=== PATIENT | female | born 1980 | race American Indian/Alaskan Native ===

== ENCOUNTER 2018-10-18 20:55 | Emergency (ER) | payer MEDICAID ==
[2018-10-18] MEDS ORDERED: KETOROLAC 30 MG/ML VIAL IVP STA (21:39)
[2018-10-18] MEDS ORDERED: MORPHINE 2 MG/ML CARPUJECT IVP STA (21:39)
[2018-10-18] MEDS ORDERED: SODIUM CHLORIDE 0.9% 1,000 ML IV ONE (21:39)
[2018-10-18] MEDS ORDERED: ONDANSETRON 4 MG/2 ML VIAL IVP STA (21:39)
[2018-10-18 22:04] LABS: BASOPHILS # (AUTO) 0.1 10^3/uL (0.0-0.1); BASOPHILS % (AUTO) 0.8 %; EOSINOPHILS # (AUTO) 0.1 10^3/uL (0.0-0.7); EOSINOPHILS % (AUTO) 1.1 %; HGB - HEMOGLOBIN 14.3 g/dL (12.0-16.0); LYMPHOCYTES # (AUTO) 4.1 10^3/uL (1.5-3.5); LYMPHOCYTES % (AUTO) 35.8 %; MEAN CORPUSCULAR HEMOGLOBIN 30.7 pg (27.0-31.0); MEAN CORPUSCULAR HGB CONC 33.3 g/dL (32.0-36.0); MEAN CORPUSCULAR VOLUME 92.1 fL (81.0-99.0); MEAN PLATELET VOLUME 7.5 fL (7.9-10.8); MONOCYTES # (AUTO) 0.9 10^3/uL (0.0-1.0); MONOCYTES % (AUTO) 7.9 %; NEUTROPHILS # (AUTO) 6.2 10^3/uL (1.5-6.6); NEUTROPHILS % (AUTO) 54.4 %; PLT - PLATELET COUNT 301 10^3/uL (130-450); RED BLOOD COUNT 4.66 10^6/uL (4.20-5.40); RED CELL DISTRIBUTION WIDTH 13.8 % (12.0-15.0); WHITE BLOOD COUNT 11.4 x10^3/uL (4.8-10.8)
[2018-10-18 22:07] LABS: BILIRUBIN,URINE NEGATIVE (NEGATIVE); GLUCOSE, URINE (UA) NEGATIVE (NEGATIVE); KETONES,URINE (UA) NEGATIVE (NEGATIVE); LEUKOCYTE ESTERASE, URINE NEGATIVE (NEGATIVE); NITRITE,URINE NEGATIVE (NEGATIVE); OCCULT BLOOD,URINE SMALL (NEGATIVE); PH,URINE 5.5 PH (5.0-7.5); PROTEIN,URINE NEGATIVE (NEGATIVE); UROBILINOGEN,URINE 0.2 (NORMAL) E.U./dL (NORMAL)
[2018-10-18 22:10] LABS: CLARITY,URINE HAZY (CLEAR)
[2018-10-18 22:11] LABS: HCG UR QUAL NEGATIVE
[2018-10-18 22:13] LABS: ALBUMIN 4.1 g/dL (3.2-5.5); ALBUMIN/GLOBULIN RATIO 1.1 (1.0-2.2); BILIRUBIN,TOTAL 0.3 mg/dL (0.2-1.0); CALCIUM 9.2 mg/dL (8.5-10.3); TOTAL PROTEIN 7.7 g/dL (6.7-8.2)
[2018-10-18 22:26] LABS: SQUAMOUS EPITHELIAL CELL,UR MANY Squamous (<= Few)
[2018-10-18 22:27] LABS: BACTERIA,URINE Rare /HPF (None Seen); CRYSTALS,URINE 6-10 Calcium Oxalate /LPF
--- NOTE | 2018-10-18 22:43 | Ultrasound Report ---
Reason: RUQ abd pain Procedure Date: 10/18/2018 Accession Number: [id number] / [id number] Procedure: US - Abdomen Limited CPT Code: FULL RESULT: EXAM: ABDOMEN ULTRASOUND LIMITED, RUQ EXAM DATE: 10/18/2018 10:15 PM. CLINICAL HISTORY: Right upper quadrant abdominal pain. COMPARISON: None. TECHNIQUE: Real-time scanning was performed with static images obtained. FINDINGS: Liver: Echogenic. 19.0 cm. Main portal vein flow: Hepatopetal. Gallbladder: Stones in the gallbladder with wall thickening at 6 mm. Focal tenderness over the gallbladder. Biliary System: CBD measures 4 mm. No intrahepatic or extrahepatic ductal dilatation. Other: Right kidney measures 9.7 cm and appears normal. Visualized portions of the pancreas are unremarkable. Inferior vena cava is patent where seen. IMPRESSION: 1. Stones in the gallbladder with wall thickening at 6 mm, and focal gallbladder tenderness. Findings are consistent with cholecystitis. 2. No biliary dilatation seen. 3. Fatty liver. RADIA
--- NOTE | 2018-10-18 23:42 | CT Report ---
Reason: right flank pain and hematuria Procedure Date: 10/18/2018 Accession Number: [id number] / [id number] Procedure: CT - Abdomen/Pelvis WO CPT Code: FULL RESULT: EXAM: CT ABDOMEN AND PELVIS (CT KUB) EXAM DATE: 10/18/2018 11:23 PM. CLINICAL HISTORY: Right flank pain and hematuria. COMPARISONS: Ultrasound, 10/18/2018. TECHNIQUE: Routine axial helical CT imaging was performed through the abdomen and pelvis without IV contrast. Reconstructions: Coronal and sagittal. In accordance with CT protocol optimization, one or more of the following dose reduction techniques were utilized for this exam: automated exposure control, adjustment of mA and/or KV based on patient size, or use of iterative reconstructive technique. FINDINGS: Lung Bases: Mild bibasilar atelectasis. Right Kidney/Ureter: Nonobstructing 3 mm stone in the kidney. No ureteral stone or obstructive uropathy identified. Left Kidney/Ureter: No stones, hydronephrosis, or hydroureter. No perinephric fat stranding. Other Solid Organs: Noncontrast images of the solid organs are grossly unremarkable. Gallbladder/Bile Ducts: Small stones in the gallbladder. Inflammatory changes suspicious for cholecystitis. Peritoneal Cavity: No bowel obstruction seen. No diverticulitis. Moderate stool in the right hemicolon. Small umbilical hernia containing fat. No free air or free fluid. No lymphadenopathy. Appendix is retrocecal and appears normal. Pelvic Organs: No bladder stones or wall thickening. Noncontrast images of the visualized pelvic organs are unremarkable. Vasculature: Unremarkable. Other: None. IMPRESSION: 1. Nonobstructing 3 mm stone in the right kidney. 2. No ureteral stone or obstructive uropathy seen bilaterally. 3. Small stones in the gallbladder with inflammatory changes suspicious for cholecystitis. RADIA
--- NOTE | 2018-10-18 23:50 | ED Physician Documentation ---
PD HPI ABD PAIN - Stated complaint Stated Complaint: ABD PX - Chief complaint Chief Complaint: Abd Pain - History obtained from History obtained from: Patient - History of Present Illness Timing - onset: Last night Timing - details: Abrupt onset Quality: Sharp Location: Other (right sided) Radiation: Right flank Associated symptoms: Nausea, Vomiting Similar symptoms before: Has not had sx before - Additional information Additional information: The patient is a 38-year-old female who presents with right-sided abdominal pain radiating to the right flank. Her pain started abruptly during the night last night, about one hour after eating corned beef and cabbage. She reports associated nausea and vomiting. She denies fever, diarrhea, or dysuria. She has a history of Crohn's disease, but states that this feels different from her Crohn's disease. She denies history of similar symptoms in the past. Review of Systems Constitutional: denies: Fever Ears: denies: Tinnitus/ringing Nose: denies: Congestion Throat: denies: Sore throat Cardiac: denies: Chest pain / pressure Respiratory: denies: Dyspnea, Cough GI: reports: Abdominal Pain, Nausea, Vomiting. denies: Diarrhea : reports: LMP (Mid-August. History of irregular menses.), Irregular menses. denies: Dysuria Skin: denies: Rash Musculoskeletal: reports: Back pain (Right flank.) Neurologic: denies: Headache PD PAST MEDICAL HISTORY - Past Medical History Past Medical History: No Cardiovascular: None Respiratory: None Endocrine/Autoimmune: None GI: Crohn's disease : Other (PCOS) - Past Surgical History Past Surgical History: No - Present Medications Home Medications: Ambulatory Orders Medication Instructions Recorded Confirmed Oxycodone HCl/Acetaminophen 1 - 2 each PO Q6H PRN #14 tablet 10/18/18 [Percocet 5-325 mg Tablet] Promethazine [Phenergan] 25 mg PO Q6H PRN #10 tab 10/18/18 - Allergies Allergies/Adverse Reactions: Allergies Allergy/AdvReac Type Severity Reaction Status Date / Time azithromycin Allergy Anaphylaxis Verified 10/18/18 21:07 cephalexin Allergy Anaphylaxis Verified 10/18/18 21:07 Penicillins Allergy Anaphylaxis Verified 10/18/18 21:07 Sulfa (Sulfonamide Allergy Anaphylaxis Verified 10/18/18 21:07 Antibiotics) - Social History Does the pt smoke?: No Smoking Status: Never smoker Does the pt drink ETOH?: No Does the pt have substance abuse?: No - Immunizations Immunizations are current?: Yes PD ED PE NORMAL - Vitals Vital signs reviewed: Yes (Initially hypertensive.) - General General: Alert and oriented X 3, Well developed/nourished - HEENT HEENT: Atraumatic, Moist mucous membranes, Pharynx benign - Neck Neck: No adenopathy, No JVD - Cardiac Cardiac: RRR, No murmur - Respiratory Respiratory: No respiratory distress, Clear bilaterally - Abdomen Abdomen: Normal bowel sounds, Soft, Other (Tenderness to palpation in the right upper quadrant, with a positive Nguyen sign.) - Back Back: No CVA TTP, No spinal TTP - Derm Derm: No rash - Extremities Extremities: No edema, No calf tenderness / cord - Neuro Neuro: Alert and oriented X 3, No motor deficit, Normal speech Results - Vitals Vitals: Oxygen O2 Source Room air - Labs Labs: Laboratory Tests 10/18/18 10/18/18 10/18/18 21:53 21:53 21:53 WBC 11.4 H RBC 4.66 Hgb 14.3 Hct 42.9 MCV 92.1 MCH 30.7 MCHC 33.3 RDW 13.8 Plt Count 301 MPV 7.5 L Neut # (Auto) 6.2 Lymph # (Auto) 4.1 H [place] # (Auto) 0.9 Eos # (Auto) 0.1 Baso # (Auto) 0.1 Absolute Nucleated RBC 0.01 Nucleated RBC % 0.1 Sodium 137 Potassium 3.7 Chloride 104 Carbon Dioxide 26 Anion Gap 7.0 BUN 10 Creatinine 1.0 Estimated GFR (MDRD) 63 L Glucose 114 H Calcium 9.2 Total Bilirubin 0.3 AST 16 ALT 14 Alkaline Phosphatase 58 Total Protein 7.7 Albumin 4.1 Globulin 3.6 Albumin/Globulin Ratio 1.1 Lipase 33 Urine Color YELLOW Urine Clarity HAZY Urine pH 5.5 Ur Specific Warden >=1.030 H Urine Protein NEGATIVE Urine Glucose (UA) NEGATIVE Urine Ketones NEGATIVE Urine Occult Blood SMALL H Urine Nitrite NEGATIVE Urine Bilirubin NEGATIVE Urine Urobilinogen 0.2 (NORMAL) Ur Leukocyte Esterase NEGATIVE Urine RBC 6-10 H Urine WBC 0-3 Ur Squamous Epith Cells MANY Squamous H Urine Crystals 6-10 Calcium Oxalate Urine Bacteria Rare Ur Microscopic Review INDICATED Urine Culture Comments NOT INDICATED Urine HCG, Qual NEGATIVE - Rads (name of study) CT abd/pelvis Radiology: Prelim report reviewed, EMP read contemporaneously, See rad report (1) Nonobstructing 3 mm stone in the right kidney. 2) No ureteral stone or ob structive uropathy seen bilaterally. 3) Small stones in the gallbladder with inflammatory changes suspicious for cholecystitis.) RUQ U/S Radiology: Prelim report reviewed, EMP read contemporaneously, See rad report (1) Stones in the gallbladder with wall thickening at 6 mm, and focal gallbladder tenderness. 2) Findings are consistent with cholecystitis. No biliary dilatation seen. 3) Fatty liver.) PD MEDICAL DECISION MAKING - ED course Complexity details: reviewed results, re-evaluated patient, considered differential, d/w patient, d/w family ED course: The patient's presentation is most consistent with cholelithiasis with biliary colic, which was confirmed by ultrasound of the right upper quadrant. Her liver enzymes are normal with a total bilirubin 0.3, AST 16, ALT 14, and alkaline phosphatase 58. Her lipase is normal at 33. Her initial description of the pain prompted suspicion for renal colic. Urinalysis came back with microscopic hematuria, with 6-10 red cells per high- powered field. A CT scan of the abdomen and pelvis reveals no evidence of ureteral stone or hydronephrosis. It did reveal a 3 mm nonobstructing stone within the right kidney. Treatment in the emergency department included administration of normal saline 1 L IV, ketorolac 30 mg IV, morphine 4 mg IV, and Zofran 4 mg IV. Her pain resolved with the above treatment, and on reexamination her abdomen is benign. She is being discharged with prescription for Phenergan and for Percocet, 12 t ablets. I discussed with her and her mother the diagnosis, the importance of outpatient surgical follow-up, as well as potentially worrisome signs or symptoms that should prompt reevaluation in the emergency department. Departure - Departure Disposition: 01 Home, Self Care Clinical Impression: Cholecystitis Condition: Stable Instructions: ED Gallstone W Biliary Colic Follow-Up: [facility] [Provider Group] Prescriptions: Oxycodone HCl/Acetaminophen [Percocet 5-325 mg Tablet] 1 - 2 each PO Q6H PRN #14 tablet PRN Reason: pain Promethazine [Phenergan] 25 mg PO Q6H PRN #10 tab PRN Reason: Nausea / Vomiting Comments: Try to avoid eating greasy or fatty foods. You can use Phenergan as prescribed if needed for nausea. You can use Percocet as prescribed if needed for pain. Follow-up with general surgery as soon as possible. Call to schedule appointment. Return to the emergency department if you develop increasing abdominal pain, fever, persistent vomiting, or otherwise worsening symptoms. Discharge Date/Time: 10/19/18 00:04
[2018-10-18 23:52] VITALS: BP 144/88
== END 2018-10-19 00:04 | disposition home or self-care (01) ==
LOC: ED 20:55
DX: K81.9 Cholecystitis, unspecified (principal); N20.0 Calculus of kidney
CPT/HCPCS: 36415; 74176; 76705; 80053; 81001; 81003; 81025; 83690; 85025; 87086; 96361; 96374; 96375; 99284

== ENCOUNTER 2019-03-06 11:48 | Emergency (ER) | payer MEDICAID ==
[2019-03-06 11:56] VITALS: BP 165/102
[2019-03-06] MEDS ORDERED: CYCLOBENZAPRINE 10 MG TABLET PO STA (12:34)
[2019-03-06] MEDS ORDERED: KETOROLAC 60 MG/2 ML VIAL IM STA (12:34)
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
== END 2019-03-06 13:21 | disposition home or self-care (01) ==
LOC: ED 11:48
DX: S46.911A Strain of unspecified muscle, fascia and tendon at shoulder and upper arm level, right arm, initial encounter (principal); M54.2 Cervicalgia; V43.52XA Car driver injured in collision with other type car in traffic accident, initial encounter; Y92.410 Unspecified street and highway as the place of occurrence of the external cause
CPT/HCPCS: 96372; 99283; 99284; A9270

== ENCOUNTER 2022-04-25 15:45 | Emergency (ER) | payer MEDICAID ==
[2022-04-25] MEDS ORDERED: METOPROLOL 5 MG/5 ML VIAL IVP STA (16:08)
--- NOTE | 2022-04-25 16:09 | ED Physician Documentation ---
PD HPI CHEST PAIN - Stated complaint Stated Complaint: CHEST PRESSURE/HIGH BP - Chief complaint Chief Complaint: Cardiac - History obtained from History obtained from: Patient - Additional information Additional information: 41-year-old woman with no history of heart problems, but she does have risk factors including untreated hypertension as her primary care physician retired, smoking, and potential family history, her dad developed some sort of heart problem but she does not know the details. She was in her usual state of health at 1:30 PM at rest today and developed uncomfortable chest pressure radiating to the neck with palpitations and skipped heartbeats. She also notes some deep left shoulder pain for the last few days with tingling in the left arm. Denies pedal edema or calf pain. Review of Systems Constitutional: denies: Fever, Chills Cardiac: reports: Chest pain / pressure, Palpitations Respiratory: reports: Dyspnea. denies: Cough PD PAST MEDICAL HISTORY - Past Medical History Cardiovascular: None Respiratory: None Endocrine/Autoimmune: None GI: Crohn's disease : Other - Past Surgical History Past Surgical History: No - Present Medications Home Medications: Ambulatory Orders Medication Instructions Recorded Confirmed Oxycodone HCl/Acetaminophen 1 - 2 each PO Q6H PRN #14 tablet 10/18/18 [Percocet 5-325 mg Tablet] Promethazine [Phenergan] 25 mg PO Q6H PRN #10 tab 10/18/18 Cyclobenzaprine [Flexeril] 10 mg PO TID PRN #20 tablet 03/06/19 Meloxicam [Mobic] 15 mg PO DAILY PRN #20 tablet 03/06/19 Metoprolol Succinate 100 mg PO DAILY #90 tab 04/25/22 - Allergies Allergies/Adverse Reactions: Allergies Allergy/AdvReac Type Severity Reaction Status Date / Time azithromycin Allergy Anaphylaxis Verified 04/25/22 15:50 cephalexin Allergy Anaphylaxis Verified 04/25/22 15:50 Penicillins Allergy Anaphylaxis Verified 04/25/22 15:50 Sulfa (Sulfonamide Allergy Anaphylaxis Verified 04/25/22 15:50 Antibiotics) - Social History Does the pt smoke?: No Smoking Status: Never smoker Does the pt drink ETOH?: No Does the pt have substance abuse?: No - Immunizations Immunizations are current?: Yes - POLST Patient has POLST: No PD ED PE NORMAL - Vitals Vital signs reviewed: Yes - General General: Alert and oriented X 3, Other (On the monitor she is having fairly frequent PVCs which do correspond with her symptoms and she notes them.) - Cardiac Cardiac: RRR (With frequent ectopy), No murmur - Respiratory Respiratory: No respiratory distress, Clear bilaterally - Abdomen Abdomen: Normal bowel sounds, Soft, Non tender - Back Back: No CVA TTP, No spinal TTP - Derm Derm: Normal color, Warm and dry - Extremities Extremities: No edema, No calf tenderness / cord - Neuro Neuro: Alert and oriented X 3, Normal speech Results - Vitals Vitals: Vital Signs - 24 hr 04/25/22 15:47 Temperature 36.9 C Heart Rate 115 H Respiratory 16 Rate Blood Pressure 151/115 H O2 Saturation 98 Oxygen O2 Source Room air - EKG (time done) 1551 Rate: Rate (enter#) (99) Rhythm: Sinus tachycardia (With frequent PVCs) [place]: Normal Intervals: Normal [place] QRS: Normal Ischemia: Normal ST segments - Labs Labs: Laboratory Tests 04/25/22 04/25/22 04/25/22 16:15 16:15 16:15 WBC 11.6 H RBC 4.68 Hgb 14.8 Hct 43.8 MCV 93.6 MCH 31.6 H MCHC 33.8 RDW 13.4 Plt Count 354 MPV 9.1 Neut # (Auto) 6.5 Lymph # (Auto) 4.1 H [place] # (Auto) 0.9 Eos # (Auto) 0.1 Baso # (Auto) 0.1 Absolute Nucleated RBC 0.00 Nucleated RBC % 0.0 D-Dimer < 200.0 L Sodium 137 Potassium 3.6 Chloride 101 Carbon Dioxide 26 Anion Gap 10.0 BUN 9 Creatinine 0.8 Estimated GFR (MDRD) 80 L Glucose 94 Calcium 9.4 Magnesium 2.0 Total Bilirubin 0.6 AST 17 ALT 16 Alkaline Phosphatase 59 Troponin I High Sens Total Protein 7.4 Albumin 4.3 Globulin 3.1 Albumin/Globulin Ratio 1.4 04/25/22 16:15 WBC RBC Hgb Hct MCV MCH MCHC RDW Plt Count MPV Neut # (Auto) Lymph # (Auto) [place] # (Auto) Eos # (Auto) Baso # (Auto) Absolute Nucleated RBC Nucleated RBC % D-Dimer Sodium Potassium Chloride Carbon Dioxide Anion Gap BUN Creatinine Estimated GFR (MDRD) Glucose Calcium Magnesium Total Bilirubin AST ALT Alkaline Phosphatase Troponin I High Sens 9.5 Total Protein Albumin Globulin Albumin/Globulin Ratio PD MEDICAL DECISION MAKING - ED course ED course: 41-year-old woman presents with elevated blood pressures in the setting of chest discomfort and frequent PVCs. She was administered metoprolol which did make her feel somewhat better and the PVCs resolved. The remainder of her work-up was negative with normal troponin and D-dimer. Also, single view chest x-ray interpreted contemporaneously by me was normal. She was advised to quit smoking and return for new or worsening symptoms. Also she needs primary care as she is currently lost to follow-up. Because of that I am giving her a few months worth of her metoprolol. Departure - Departure Disposition: 01 Home, Self Care Clinical Impression: Atypical chest pain, PVCs (premature ventricular contractions) Condition: Good Record reviewed to determine appropriate education?: Yes Instructions: ED Chest Pain Atypical Unkn Cause Prescriptions: Metoprolol Succinate 100 mg PO DAILY #90 tab Comments: As discussed, it is imperative to follow-up with her primary care physician, because of the limited number of local primary care physicians I am giving you a longer prescription for the blood pressure medication that I usually would. But you should start the search tomorrow. Return for new or worsening symptoms. Track your blood pressures daily.
[2022-04-25 16:20] LABS: BASOPHILS # (AUTO) 0.1 10^3/uL (0.0-0.1); BASOPHILS % (AUTO) 0.6 %; EOSINOPHILS # (AUTO) 0.1 10^3/uL (0.0-0.7); EOSINOPHILS % (AUTO) 0.7 %; HCT - HEMATOCRIT 43.8 % (37.0-47.0); HGB - HEMOGLOBIN 14.8 g/dL (12.0-16.0); LYMPHOCYTES # (AUTO) 4.1 10^3/uL (1.5-3.5); MEAN CORPUSCULAR HEMOGLOBIN 31.6 pg (27.0-31.0); MEAN CORPUSCULAR HGB CONC 33.8 g/dL (32.0-36.0); MEAN CORPUSCULAR VOLUME 93.6 fL (81.0-99.0); MEAN PLATELET VOLUME 9.1 fL (7.9-10.8); MONOCYTES # (AUTO) 0.9 10^3/uL (0.0-1.0); MONOCYTES % (AUTO) 7.7 %; NEUTROPHILS # (AUTO) 6.5 10^3/uL (1.5-6.6); NEUTROPHILS % (AUTO) 55.7 %; PLT - PLATELET COUNT 354 10^3/uL (130-450); RED BLOOD COUNT 4.68 10^6/uL (4.20-5.40); RED CELL DISTRIBUTION WIDTH 13.4 % (12.0-15.0); WHITE BLOOD COUNT 11.6 x10^3/uL (4.8-10.8)
--- NOTE | 2022-04-25 16:23 | XRAY Report ---
PROCEDURE: Chest 1 View X-Ray INDICATIONS: chest pain COMMENTS: Chest pain/ Pt states started today PRIORS: none TECHNIQUE: One view of the chest was acquired. COMPARISON: None FINDINGS: Surgical changes and devices: None. Lungs and pleura: No pleural effusions or pneumothorax. Lungs are clear. Mediastinum: Mediastinal contours appear normal. Heart size is normal. Bones and chest wall: No suspicious bony lesions. Overlying soft tissues appear unremarkable. IMPRESSION: No acute cardiopulmonary abnormality. Reviewed by: Maurice Lan on 04/25/2022 4:22 PM PDT Approved by: Maurice Lan on 04/25/2022 4:22 PM PDT Station ID: [id number]
[2022-04-25 16:32] LABS: ALBUMIN 4.3 g/dL (3.2-5.5); ALBUMIN/GLOBULIN RATIO 1.4 (1.0-2.2); BILIRUBIN,TOTAL 0.6 mg/dL (0.2-1.0); CALCIUM 9.4 mg/dL (8.5-10.3); CREATININE 0.8 mg/dL (0.4-1.0); POTASSIUM 3.6 mmol/L (3.5-5.0); TOTAL PROTEIN 7.4 g/dL (6.7-8.2)
[2022-04-25 17:18] VITALS: BP 186/106
== END 2022-04-25 17:24 | disposition home or self-care (01) ==
LOC: ED 15:45
DX: R07.89 Other chest pain (principal); I49.3 Ventricular premature depolarization; I10 Essential (primary) hypertension
CPT/HCPCS: 36415; 80053; 83735; 84484; 85025; 85379; 93005; 96374; 99284

== ENCOUNTER 2022-07-20 09:22 | Emergency (ER) | payer MEDICAID ==
[2022-07-20 09:37] VITALS: BP 188/117
[2022-07-20] MEDS ORDERED: CLINDAMYCIN 150 MG CAPSULE PO STA (11:17)
[2022-07-20] MEDS ORDERED: HYDROcod/ACETAM 5/325 MG TABLET PO STA (11:17)
--- NOTE | 2022-07-20 11:21 | ED Physician Documentation ---
History of Present Illness - Stated complaint Stated Complaint: FACIAL SWELLING - Chief complaint Chief Complaint: Heent - History obtained from History obtained from: Patient - History of Present Illness Timing: How many days ago (several) Pain level max: 5 Pain level now: 5 - Additonal information Additional information: 42-year-old female presents to the emergency department with left upper dental pain. She states that she cracked a tooth about 2 years ago. Has had increasing pain and swelling over the past several days. She states she does not currently have a dentist but will start calling dentist on Friday. No fevers. Has had some chills. No vomiting. Denies any possibility of . 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 : Other HEENT: None Psych: None Musculoskeletal: None Derm: None - Past Surgical History Past Surgical History: No General: Cholecystectomy - Present Medications Home Medications: Ambulatory Orders Medication Instructions Recorded Confirmed HYDROcod/ACETAM 5/325 [Creole 5/325] 1 - 2 ea PO Q6H PRN #14 tablet 07/20/22 Metoprolol Succinate 100 mg PO DAILY #90 tab 07/20/22 clindamycin HCL [Cleocin HCl] 300 mg PO Q6H #40 cap 07/20/22 - Allergies Allergies/Adverse Reactions: Allergies Allergy/AdvReac Type Severity Reaction Status Date / Time azithromycin Allergy Anaphylaxis Verified 07/20/22 09:37 cephalexin Allergy Anaphylaxis Verified 07/20/22 09:37 Penicillins Allergy Anaphylaxis Verified 07/20/22 09:37 Sulfa (Sulfonamide Allergy Anaphylaxis Verified 07/20/22 09:37 Antibiotics) - Social History Does the pt smoke?: No Smoking Status: Never smoker Does the pt drink ETOH?: Yes Does the pt have substance abuse?: No - Immunizations Immunizations are current?: Yes - POLST Patient has POLST: No PD ED PE NORMAL - Vitals Vital signs reviewed: Yes - General General: Alert and oriented X 3, No acute distress - HEENT HEENT: Ears normal, Moist mucous membranes, Other (Dental decay, left upper premolar. There is swelling to the gingiva. No drainable abscess. Otherwise normal intraoral exam) - Neck Neck: Supple, no meningeal sign - Cardiac Cardiac: RRR - Respiratory Respiratory: No respiratory distress - Derm Derm: Warm and dry - Neuro Neuro: Alert and oriented X 3 - Psych Psych: Normal mood, Normal affect Results - Vitals Vitals: Vital Signs - 24 hr 07/20/22 09:33 Temperature 36.3 C L Heart Rate 99 Respiratory 16 Rate Blood Pressure 188/117 H O2 Saturation 99 Oxygen O2 Source Room air PD Medical Decision Making - ED course Complexity details: considered differential, d/w patient ED course: Patient with dental caries and mild facial swelling. Will place on antibiotics and have her follow-up with dentistry next week. We will place on pain medication as well. Patient is taking clindamycin without issue in the past. Patient also states that she is out of her metoprolol, so prior records were reviewed, we will refill this. Patient counseled regarding signs and symptoms for which I believe and urgent re-evaluation would be necessary. Patient with good understanding of and agreement to plan and is comfortable going home at this time This document was made in part using voice recognition software. While efforts are made to proofread this document, sound alike and grammatical errors may occur. Departure - Departure Disposition: 01 Home, Self Care Clinical Impression: Dental caries Condition: Good Instructions: ED Cavity Dental Follow-Up: your,dentist this week [Other] [facility] [place] [Provider Group] [facility] [place] [Provider Group] Prescriptions: clindamycin HCL [Cleocin HCl] 300 mg PO Q6H #40 cap Metoprolol Succinate 100 mg PO DAILY #90 tab HYDROcod/ACETAM 5/325 [Creole 5/325] 1 - 2 ea PO Q6H PRN #14 tablet PRN Reason: Pain Comments: Your prescriptions were sent to [facility] in [place]. Please follow-up with your dentist for further care. You can also use the walk-in clinics in [place] to help with your prescriptions. Please return if you worsen. You can try [facility] dentistry as well as the [employer] [facility] to see if they can help you as well. I am prescribing a short course of narcotic pain medication for you. These are potentially dangerous and addictive medications that should be used carefully. These medications may constipate you. Take an [id number] stool softener (docusate) twice daily with plenty of water while taking these medications. If you go 24 hours without a bowel movement, take [id number] miralax, per package instructions. Do not drink or drive while taking these medications. If you received narcotic or sedating medications while in the emergency department, do not drive for 24 hours. Store this medication in a safe, secure place and out of reach of children. It is a violation of federal law to give or sell this medication to another person or to use in a manner other than prescribed. The ED will not refill narcotic prescriptions, including prescriptions lost or stolen. To dispose of unwanted medications: 1. [facility] at [address] in [place] has a medication drop box. They accept prescription medications (in pill form) Friday through Friday 9:00 a.m. to 5:00 p.m. 2. [facility] accepts prescription medications (in pill form only) for disposal year round. Call for more information. 3. Contact the [facility] for the next [facility] sponsored prescription drug collection event. , [phone], or [phone]; Discharge Date/Time: 07/20/22 11:37
== END 2022-07-20 11:37 | disposition home or self-care (01) ==
LOC: ED 09:22
DX: K02.9 Dental caries, unspecified (principal)
CPT/HCPCS: 99282; 99284; A9270

== ENCOUNTER 2023-10-15 19:34 | Emergency (ER) | payer MEDICAID ==
[2023-10-15 19:50] VITALS: O2SAT 100
[2023-10-15] MEDS: ALBUTEROL NEB 2.5 MG/3 ML INH STA (20:57)
[2023-10-15] MEDS: IBUPROFEN 600 MG TABLET PO STA (20:59)
[2023-10-15] MEDS: ACETAMINOPHEN 325 MG TABLET PO STA (21:01)
--- NOTE | 2023-10-15 21:12 | ED Physician Documentation ---
PD HPI DYSPNEA - Stated complaint Stated Complaint: C+/CHEST PX/COUGHING BLOOD - Chief complaint Chief Complaint: Resp - Additional information Additional information: 43-year-old female presents emergency department for COVID-19 symptoms. She is here also with her fianc. Patient said that she has been coughing up blood although she also had a dental procedure this morning. She called her clinic to let the clinic know about her symptoms and they did advise her to come to the emergency department. Patient says that she has asthma she is been having some mild dyspnea has not taken any inhaler puffs today and has not also not take any Tylenol or ibuprofen for her generalized body aches. She is fully vaccinated against COVID-19. 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 : Other HEENT: None Psych: None Musculoskeletal: None Derm: None - Past Surgical History Past Surgical History: No General: Cholecystectomy - Present Medications Home Medications: Ambulatory Orders Medication Instructions Recorded Confirmed Albuterol Sulfate [Proair 2 puffs IH Q4HR PRN 10/15/23 10/15/23 Digihaler] Losartan Potassium 25 mg PO DAILY 10/15/23 10/15/23 - Allergies Allergies/Adverse Reactions: Allergies Allergy/AdvReac Type Severity Reaction Status Date / Time azithromycin Allergy Anaphylaxis Verified 10/15/23 19:47 cephalexin Allergy Anaphylaxis Verified 10/15/23 19:47 erythromycin base Allergy Rash Verified 10/15/23 19:48 Penicillins Allergy Anaphylaxis Verified 10/15/23 19:47 Sulfa (Sulfonamide Allergy Anaphylaxis Verified 10/15/23 19:47 Antibiotics) - Social History Does the pt smoke?: No Smoking Status: Never smoker Does the pt drink ETOH?: Yes Does the pt have substance abuse?: No - Immunizations Immunizations are current?: Yes - POLST Patient has POLST: No PD ED PE NORMAL - Vitals Vital signs reviewed: Yes - General General: Alert and oriented X 3, No acute distress, Well developed/nourished - HEENT HEENT: Atraumatic - Neck Neck: Supple, no meningeal sign, No JVD - Cardiac Cardiac: RRR, No murmur, No gallop, Strong equal pulses - Respiratory Respiratory: No respiratory distress, Other (Diminished breath sounds, no wheezing no rhonchi) - Abdomen Abdomen: Normal bowel sounds, Soft, Non tender - Back Back: No CVA TTP - Derm Derm: Normal color, Warm and dry, No rash Results - Vitals Vitals: Vital Signs - 24 hr 10/15/23 10/15/23 10/15/23 19:42 20:55 20:59 Temperature 37.3 C 37.3 C Heart Rate 101 H 80 Respiratory 18 20 Rate Blood Pressure 175/127 H O2 Saturation 100 10/15/23 22:00 Temperature Heart Rate 92 Respiratory 20 Rate Blood Pressure 153/122 H O2 Saturation 100 Oxygen O2 Source Room air - Rads (name of study) Chest x-ray Relevant Findings:: Final report received, EMP independent interpretation of test, Other (No acute cardiopulmonary abnormalities) PD Medical Decision Making - ED course ED course: 43-year-old female presents emergency department for COVID-19 and persistent cough with some mild shortness of breath. Chest x-ray does not reveal any pneumonia or other abnormalities. Patient had 1 episode of coughing up blood at home that she was very worried about. I informed her that this is most likely due to irritation capillary disruption causing this bleeding. Patient was quite upset "that people are not more worried about her having COVID and her coughing up blood" I informed her that the new COVID strains that is going around is not super toxic and that she does not have a significant amount of medical comorbidities and that she will likely make a full recovery of her COVID-19 symptoms about the current strain going around although causes people to be very ill it is not deadly the way the original strain was. I offered patient additional workup if she was concerned such as labs but patient declined and said that she just wanted to go home to rest and emphasized that she does not understand why we are not more worried about her As her primary care provider nurse sent her into the emergency department. I reiterated her chest x-ray was normal and that we would be willing to do more workup if she would like but patient declined. All questions answered she is safe for discharge at this time. Departure - Departure Disposition: 01 Home, Self Care Clinical Impression: COVID-19 Instructions: COVID-19 [facility] Comments: Thank you for trusting us with your care. Your chest x-ray does not reveal any pneumonia or other acute abnormalities. Continue with Tylenol ibuprofen for any pain and discomfort make sure that you are taking your albuterol inhaler at home for your asthma. Taking deep breaths and coughing and drinking plenty of fluids will help you recover sooner from this. As we discussed when you are coughing up blood this is most likely just due to some capillary irritation in your throat. Please come back to the emergency department if you are developing fevers and chills that last longer than 5 days. We are letting people know that they are able to return to their regular activity 7 days from symptom onset and you are able to be out in public as long as you are wearing a mask. Please follow-up with your primary care provider as needed. Forms: PCP List Discharge Date/Time: 10/15/23 22:00
--- NOTE | 2023-10-15 21:36 | XRAY Report ---
PROCEDURE: Chest 1V INDICATIONS: COVID, SOA TECHNIQUE: One view of the chest was acquired. COMPARISON: chest radiograph 04/25/2022. FINDINGS: Surgical changes and devices: Electronic device is seen projecting over the heart. Lungs and pleura: No pleural effusions or pneumothorax. Mildly low lung volumes. No focal opacity. Mediastinum: Mediastinal contours appear normal. Heart size is normal. Bones and chest wall: No suspicious bony lesions. Overlying soft tissues appear unremarkable. IMPRESSION: No acute cardiopulmonary process. Reviewed by: Curt Montanez MD on 10/15/2023 9:34 PM PDT Approved by: Curt Montanez MD on 10/15/2023 9:34 PM PDT Station ID: [id number]
[2023-10-15 22:07] VITALS: BP 153/122
== END 2023-10-15 22:00 | disposition home or self-care (01) ==
LOC: ED 19:34
DX: U07.1 COVID-19 (principal); I10 Essential (primary) hypertension; I49.9 Cardiac arrhythmia, unspecified; K50.90 Crohn's disease, unspecified, without complications
CPT/HCPCS: 71045; 94640; 99283; A9270